=== PATIENT | female | born 2000 | race Caucasian/White ===

== ENCOUNTER 2020-12-27 06:14 | Day surgery (SDC) | payer OTHER ==
[~2020-12-27] VITALS: Ht 165.1 cm; Wt 57.6 kg
--- NOTE | ~2020-12-27 | O ---
[facility] [place] [address] OPERATIVE REPORT Name: KIRSTIE MOON Room #: 150-2 [facility] M..#: [id number] Admission: 12/27/20 Attend Phys: Nicolas Ramirez MD Discharge: Date of : 89 Report #: [id number] THIS REPORT FOR: cc: Leanna Gaitan MD, Christine MD Shapiro,Nicolas Bettencourt MD ~ DATE OF SERVICE: 12/27/2020 PREOPERATIVE DIAGNOSIS: Chronic tonsillitis with tonsillar hypertrophy. POSTOPERATIVE DIAGNOSIS: Chronic tonsillitis with tonsillar hypertrophy. OPERATIVE PROCEDURE: Tonsillectomy. ANESTHESIA: General endotracheal. DESCRIPTION OF PROCEDURE: The patient was taken to the operating room and placed in a supine position. General anesthesia was induced by endotracheal intubation. Once adequate general anesthesia was obtained, the patient was draped in a sterile manner. A Madison-Moreno mouth gag was placed in the patient's mouth and the tongue was deviated upward. The right tonsil was grasped and deviated towards the midline and the incision was placed in the anterior tonsillar pillar using the Bovie electrocautery and a plane between the tonsillar capsule and tonsillar fossa was established. Dissection was carried out in this plane using the Bovie and hemostasis was achieved during the dissection. Dissection was carried out from superior to inferior. The inferior pole incised, posterior tonsillar mucosa was incised. The tonsil was removed and sent to pathology. The left tonsil was removed in exactly the same manner. The area was then irrigated with normal saline. Hemostasis was verified in the tonsillar beds. The patient tolerated the procedure well. The mouth gag was removed. Blood loss of procedure was 5 mL. The patient was then awoken and taken to recovery room in stable condition for postoperative monitoring. By: 0742 0800 Nicolas Ramirez MD /nt
[~2020-12-27 06:14] MED LIST: ADDERALL 20 MG20 MG PO; ARIPIPRAZOLE5 MG PO; FLUOXETINE HCL40 MG PO; ISIBLOOM 28 DA1 EACH PO; LEVOTHYROXINE25 MCG PO; VITAMIN D31250 MC1 PO
--- NOTE | 2020-12-27 07:42 | H ---
[facility] [place] [address] HISTORY AND PHYSICAL Name: KIRSTIE MOON Room #: 150-2 [facility]..#: [id number] Admission: 12/27/20 Attend Phys: Nicolas Ramirez MD Discharge: Date of : 89 Report #: [id number] THIS REPORT FOR: cc: Leanna Gaitan MD, Christine MD Shapiro,Nicolas Bettencourt MD ~ DATE OF SERVICE: 12/27/2020 The procedure is scheduled for 12/27/2020. HISTORY OF PRESENT ILLNESS: The patient is having tonsil problems. She was recently noted by the dentist to have abnormally enlarged right tonsil with mild enlargement of the left. She has had a lot of sore throats, and it was considered to take out her tonsils when she was younger. She gets tonsil stones that smell and taste terrible. She is a mouth breather at night. PAST MEDICAL HISTORY: Otherwise not significant. MEDICATIONS: Her only medication is control. ALLERGIES: She has no known drug allergies. PHYSICAL EXAMINATION: She had a 4+ enlarged right tonsil and a 2+ enlarged left tonsil with deep crypts and debris and stones in the crypts. She had very significant upper cervical adenopathy. IMPRESSION: Tonsillar hypertrophy with chronic tonsillitis. PLAN: Tonsillectomy. <ELECTRONICALLY SIGNED> By: Nicolas Ramirez MD 12/27/20 0742 1512 1622 Nicolas Ramirez MD /roshan
[2020-12-27 08:45] VITALS: BP 120/65
[2020-12-27] MEDS ORDERED: AMOXICILLIN 50500 MG PO (08:47)
[2020-12-27] MEDS ORDERED: HYDROCODONE-ACE15 ML PO (08:47)
[2020-12-27 09:30] VITALS: BP 120/65
--- NOTE | 2020-12-29 16:09 | PATH ---
[facility] [address] [place] [address] PATHOLOGY RPT PROCEDURE Name: KIRSTIE MOON Room #: [facility] M.R.#: [id number] Admission: 12/27/20 Date of : 89 Discharge: 12/27/20 Report #: [id number] Path Case #: [id number] [facility] Accession Number: [id number] . 01 Material submitted: . PART A: tonsil - RIGHT TONSIL. Modifiers: right PART B: tonsil - LEFT TONSIL. Modifiers: left . 01 Clinical history: . TONSILLECTOMY CHRONIC TONSILLITIS, TONSIL HYPERTROPHY . 02 Diagnosis: A. Tonsil, right tonsil, tonsillectomy: - Acutely inflamed squamous epithelium overlying lymphoid tissue with reactive hyperplasia. . B. Tonsil, left tonsil, tonsillectomy: - Acutely inflamed squamous epithelium overlying lymphoid tissue with reactive hyperplasia. (IUV:sandra; 12/29/2020) QMS 12/29/2020 1406 Local . 02 Electronically signed: . Sanjuaniat Conway MD, Pathologist NPI- [id number] . 01 Gross description: . A. Received in formalin labeled "Kirstie Moon and right tonsil". Received is a lobulated pink-isidro tonsil measuring 3.0 x 2.5 x 2.0 cm. Sectioning reveals glistening pink-isidro cut surfaces and no grossly apparent lesions. The specimen is representatively submitted in cassette A1. . B. Received in formalin labeled "Kirstie Moon and left tonsil". Received is a lobulated pink-isidro tonsil measuring 3.6 x 2.0 x 2.0 cm. Sectioning reveals glistening pink-isidro cut surfaces and no other grossly apparent lesions. The specimen is representatively submitted in cassette B1. ([facility]; 12/28/2020) [facility] 12/28/2020 1934 Local . 02 Pathologist provided ICD-10: J03.90, J35.1 . 02 CPT . 421645, 628520 Specimen Comment: A courtesy copy of this report has been sent to [phone], [place] [address] PATHOLOGY RPT PROCEDURE Name: KIRSTIE MOON Room #: [facility].#: [id number] Admission: 12/27/20 Date of : 89 Discharge: 12/27/20 Report #: [id number] Path Case #: [id number] Specimen Comment: [id number] Specimen Comment: Report sent to / DR ESPINOSA Performed at: [address], [place] [id number] MD Shane Jung MD Phone: [phone] Performed at: [address] [id number] MD Sanjuanita Conway MD Phone: [phone]
== END 2020-12-27 11:15 | disposition home or self-care (01) ==
LOC: OR 06:14 → TBA 06:14 → OR 11:15
PROVIDERS: ATTEND Otolaryngology
DX: J35.01 Chronic tonsillitis (principal); F32.9 Major depressive disorder, single episode, unspecified; F41.9 Anxiety disorder, unspecified; F17.210 Nicotine dependence, cigarettes, uncomplicated; Z98.890 Other specified postprocedural states; Z79.899 Other long term (current) drug therapy
CPT/HCPCS: 50010; 50101; 62110; 62900; 70005